=== PATIENT | male | born 1990 | race Caucasian/White ===

== ENCOUNTER 2022-04-20 13:19 | Emergency (ER) | payer SELFPAY ==
[2022-04-20] MEDS ORDERED: CEPHALEXIN500 MG PO (15:12)
[2022-04-20] MEDS ORDERED: BACTROBAN OINT22 GM EXT (15:12)
== END 2022-04-20 15:43 | disposition home or self-care (01) ==
LOC: ER1 13:19
DX: S61.212A Laceration without foreign body of right middle finger without damage to nail, initial encounter (principal); Z23 Encounter for immunization; W26.8XXA Contact with other sharp object(s), not elsewhere classified, initial encounter
CPT/HCPCS: 12001; 90471; 90715; 99282